=== PATIENT | female | born 1980 | race African-American/Black ===

== ENCOUNTER 2021-04-29 07:41 | Observation (INO) | payer OTHER ==
[2021-04-29 07:35] VITALS: BMI 50.6
[~2021-04-29 07:41] MED LIST: Bupivacaine PF 0.5% 30 ML VIAL ONE; EPINEPHrine 1 MG/ML AMP ONE
[2021-04-29] MEDS ORDERED: Gabapentin 300 MG CAP ONE (08:00)
[2021-04-29] MEDS ORDERED: Lidocaine 1% MPF 2 ML VIAL ONE (08:00)
[2021-04-29] MEDS ORDERED: Levofloxacin 500 mg/D5W 100 ml Premix Bag ONE (08:00)
[2021-04-29] MEDS ORDERED: CeleCOXIB 100 MG CAP ONE (08:00)
[2021-04-29] MEDS ORDERED: Famotidine/PF 20 mg/2ml Vial ONE (08:01)
[2021-04-29] MEDS ORDERED: Dexamethasone 4 mg/ml Vial ONE (09:26)
[2021-04-29] MEDS ORDERED: Fentanyl 250 MCG/5 ML VIAL ONE (09:26)
[2021-04-29] MEDS ORDERED: Glycopyrrolate 0.2 MG/ML 5 ML SYRINGE ONE (09:26)
[2021-04-29] MEDS ORDERED: Rocuronium Bromide 10 MG/ML (10ML VIAL) ONE (09:26)
[2021-04-29] MEDS ORDERED: PROPOFOL 20 ML ONE ×2 (09:26→09:27)
[2021-04-29] MEDS ORDERED: Ketorolac Tromethamine 30 MG/ML VIAL ONE (09:26)
[2021-04-29] MEDS ORDERED: Lidocaine 1% PF 5 ML VIAL ONE (09:26)
[2021-04-29] MEDS ORDERED: Ondansetron PF 4 MG/2 ML Vial ONE (09:26)
[2021-04-29] MEDS ORDERED: Midazolam HCl 2 mg/2 ml Vial ONE (09:26)
[2021-04-29] MEDS ORDERED: ePHEDrine Sulfate 50 MG/10 ML VIAL ONE (10:16)
[2021-04-29] MEDS ORDERED: PHENYLEPHRINE-NS 100 MCG/ML 10 ML SYRINGE ONE (10:17)
[2021-04-29] MEDS ORDERED: Ferric Subsulfate (ASTRINGYN) 8 GM VIAL ONE (10:51)
[2021-04-29] MEDS ORDERED: Fentanyl 100 MCG/2 ML VIAL ONE ×2 (12:02→12:40)
[2021-04-29] MEDS ORDERED: Promethazine HCl 25 MG/ML VIAL IM PRN (13:59)
[2021-04-29] MEDS ORDERED: HYDROcodone/Acetaminophen 10/325 mg Tablet PO PRN (13:59)
[2021-04-29] MEDS ORDERED: Simethicone Chewable 80 MG TAB PO PRN (13:59)
[2021-04-29] MEDS ORDERED: diphenhydrAMINE 25 MG CAP PO PRN (13:59)
[2021-04-29] MEDS ORDERED: Morphine 2 MG/ML VIAL SLOW IVP PRN (13:59)
[2021-04-29] MEDS ORDERED: Ventolin HFA Inhaler 60 PUFF INHALER INH PRN (14:58)
[2021-04-29] MEDS: Morphine 4 MG/ML VIAL SLOW IVP PRN ×2 (15:13→19:45)
[2021-04-29] MEDS: HYDROcodone/Acetaminophen 10/325 mg Tablet PO PRN (17:13)
[2021-04-29] MEDS: Ondansetron PF 4 MG/2 ML Vial IVP PRN ×2 (17:20→23:46)
[2021-04-29] MEDS: Mometasone 200 MCG/PUFF (1 INHALER) INH SCH (20:50)
[2021-04-29] MEDS: Enoxaparin Sodium 40 MG/0.4 ML SYRINGE SC SCH (21:09)
[2021-04-29] MEDS: Docusate 100 MG CAP PO SCH (21:09)
[2021-04-29] MEDS: Ibuprofen 800 MG TAB PO SCH (21:09)
[2021-04-29] MEDS: Lactated Ringer's 1,000 ML IV SCH (23:47)
[2021-04-30] MEDS: HYDROcodone/Acetaminophen 10/325 mg Tablet PO PRN (00:28)
[2021-04-30] MEDS: Morphine 4 MG/ML VIAL SLOW IVP PRN (04:51)
[2021-04-30] MEDS: Lactated Ringer's 1,000 ML IV SCH ×2 (04:53→08:58)
[2021-04-30 05:51] LABS: Hemoglobin 9.2 g/dL (12.0-15.5); Mean Corpuscular HGB CONC 30.7 g/dL (32.0-36.0); Mean Corpuscular Hemoglobin 26.2 pg (27.0-33.0); Mean Corpuscular Volume 85.5 fl (81.6-98.3); Mean Platelet Volume 10.5 fl (7.4-10.4); Platelet Count 191 10x3/uL (150-450); RBC Distribution Width 15.9 % (11.5-14.5); Red Blood Cell (RBC) Count 3.51 10x6/uL (3.90-5.03); White Blood Cell (WBC) Count 10.4 10x3/uL (3.5-10.5)
[2021-04-30] MEDS: Ibuprofen 800 MG TAB PO SCH (05:59)
[2021-04-30] MEDS: Mometasone 200 MCG/PUFF (1 INHALER) INH SCH (07:52)
[2021-04-30 08:01] VITALS: BP 99/53; TEMP 98.1
[2021-04-30] MEDS ORDERED: Furosemide 40 MG TAB PO SCH (09:00)
[2021-04-30] MEDS ORDERED: Saccharomyces boulardii 250 MG CAP PO SCH (09:00)
[2021-04-30] MEDS ORDERED: Lisinopril 10 MG TAB PO SCH (09:00)
[2021-04-30] MEDS: Docusate 100 MG CAP PO SCH (09:10)
[2021-04-30] MEDS: Enoxaparin Sodium 40 MG/0.4 ML SYRINGE SC SCH (09:12)
== END 2021-04-30 10:26 | disposition home or self-care (01) ==
LOC: CSHSDC 07:41 → CSHPED 13:54
PROVIDERS: ADMIT Obstetrics & Gynecology; ATTEND Obstetrics & Gynecology
PROC: 0UT94ZL Resection of Uterus, Supracervical, Percutaneous Endoscopic Approach (ICD-10-PCS; principal; 2021-04-29)
PROC: 0UT74ZZ Resection of Bilateral Fallopian Tubes, Percutaneous Endoscopic Approach (ICD-10-PCS; 2021-04-29)
DX: D25.9 Leiomyoma of uterus, unspecified (principal); N88.8 Other specified noninflammatory disorders of cervix uteri; E28.2 Polycystic ovarian syndrome; E66.01 Morbid (severe) obesity due to excess calories; Z68.43 Body mass index [BMI] 50.0-59.9, adult; Z86.718 Personal history of other venous thrombosis and embolism; Z79.899 Other long term (current) drug therapy; Z88.0 Allergy status to penicillin; Z88.5 Allergy status to narcotic agent
CPT/HCPCS: 36415; 85027; 86850; 86900; 86901; 88307; 96372; 96374; 96375; 96376; G0378; J0171; J1100; J1650; J1885; J1956; J2250; J2270; J2405; J2704; J3010; J3490; J7120; S0020; S0028